=== PATIENT | female | born 1990 | race Caucasian/White ===

== ENCOUNTER 2017-12-18 10:06 | Inpatient (IN) | payer SELFPAY ==
[~2017-12-18] VITALS: Ht 160 cm; Wt 71.7 kg
[2017-12-18] VITALS (39 sets, daily range): BP systolic 100–143; BP diastolic 59–93
[~2017-12-18 10:06] MED LIST: DOCU100C37 PO; IBUP-1780 PO; OXYC-465 PO
[2017-12-18] MEDS ORDERED: OXYTOCIN/NORMAL SALINE 500 ML IV SCH ×2 (10:27→19:17)
[2017-12-18] MEDS ORDERED: D5 LR IV SOLUTION 1,000 ML IV ONE (10:34)
[2017-12-18] MEDS ORDERED: OXYTOCIN/NORMAL SALINE 500 ML IV ONE (10:34)
[2017-12-18] MEDS: D5 LR IV SOLUTION 1,000 ML IV SCH (11:00)
[2017-12-18 11:11] LABS: BASOPHILS % (AUTO) 0 % (0-10); EOSINOPHILS # (AUTO) 0.1 10^3/uL (0.0-0.3); EOSINOPHILS % (AUTO) 1 % (0-10); HEMATOCRIT 29 % (35-52); HEMOGLOBIN 9.5 G/DL (11.5-16.0); LYMPHOCYTES # (AUTO) 1.4 X 10^3 (1.0-4.0); LYMPHOCYTES % (AUTO) 15 % (12-44); MEAN CORPUSCULAR HEMOGLOBIN 26 PG (25-34); MEAN CORPUSCULAR HGB CONC 33 G/DL (32-36); MEAN CORPUSCULAR VOLUME 81 FL (80-99); MEAN PLATELET VOLUME 10.4 FL (7.4-10.4); MONOCYTES # (AUTO) 0.6 X 10^3 (0.0-1.0); MONOCYTES % (AUTO) 6 % (0-12); NEUTROPHILS # (AUTO) 7.2 X 10^3 (1.8-7.8); NEUTROPHILS % (AUTO) 79 % (42-75); PLATELET COUNT 184 10^3/uL (130-400); RED BLOOD COUNT 3.59 10^6/uL (4.35-5.85); RED CELL DISTRIBUTION WIDTH 13.2 % (10.0-14.5); WHITE BLOOD COUNT 9.2 10^3/uL (4.3-11.0)
[2017-12-18] MEDS ORDERED: SUFENTA 0.6MCG/ML BUPIVA 0.125 100 ML ONE (11:56)
[2017-12-18] MEDS ORDERED: BUPIVACAINE 0.25% 30 ML (SENSORCAINE) VIAL ONE (11:56)
[2017-12-18] MEDS ORDERED: fentaNYL INJECTION 100 MCG/2 ML AMP ONE (11:57)
--- NOTE | 2017-12-18 12:32 | History & Physical ---
History and Physical Date Seen by Provider: Dec 18, 2017 Time Seen by Provider: 12:30 This patient is a 27-year-old white female at 37 weeks and 1 day gestation she was found to have oligohydramnios with an ABBIE of less than 45. She was having some contractions. She denies irregular bleeding. She had a GBS culture negative. Her previous was delivered at around 37 weeks it well and was a complicated by polyhydramnios as well. Allergies are none Medications are vitamins past medical history, family history, and social histories are per the antepartum record HEENT exam is normal Neck is supple no lymphadenopathy no thyromegaly Abdomen is gravid soft nontender nondistended Extreme show clubbing cyanosis no Homans sign. Pelvic exam reveals a cervix 2 cm dilated 50 percent effaced -1 station somewhat posterior and soft and stretchy Assessment and plan term 37 weeks gestation with oligohydramnios admitted for labor management and delivery 37 weeks with oligohydramnios Allergies and Home Medications Allergies Coded Allergies: No Known Drug Allergies (Unverified , 10/06/15) Home Medications Docusate Sodium 100 Mg Capsule, 100 MG PO BID Prescribed by: AURELIA MAGAÑA on 10/07/15 0931 Ibuprofen 800 Mg Tablet, 800 MG PO Q6H Prescribed by: AURELIA MAGAAÑ on 10/07/15 0931 Oxycodone HCl/Acetaminophen 1 Each Tablet, 1-2 TAB PO Q4H PRN for PAIN Prescribed by: AURELIA MAGAÑA on 10/07/15 0931 Patient Home Medication List Home Medication List Reviewed: Yes Clinical Quality Measures DVT/VTE Risk/Contraindication: Risk Factor Score Per Nursin RFS Level Per Nursing on Admit: 1=Low/No VTE PPX AURELIA OLIVA MD Dec 18, 2017 12:32 pm
[2017-12-18] MEDS ORDERED: LACTATED RINGERS 1,000 ML IV ONE (13:39)
[2017-12-18] MEDS ORDERED: CATHETER FLUSH 10 ML SYR IV PRN (13:45)
[2017-12-18] MEDS ORDERED: diphenhydrAMINE 50 MG/ML INJ (BENADRYL) IV PRN (13:45)
[2017-12-18] MEDS ORDERED: NALOXONE 0.4 MG/ML 1 ML (NARCAN) VIAL IV PRN (13:45)
[2017-12-18] MEDS ORDERED: ONDANSETRON 4 MG/2 ML (SDV) Z0FRAN IV PRN (13:45)
[2017-12-18] MEDS ORDERED: EPIDURAL (SUFENTA 0.6MCG/ML BUPIVA 0.125%) 100 ML BAG EPI SCH (13:45)
[2017-12-18] MEDS ORDERED: LIDOCAINE/EPI 2% 1:200,00 (XYLOCAINE) 10 ML VIAL ONE (16:33)
[2017-12-18] MEDS ORDERED: TETANUS,DIPTH,PERTUSS P/F (BOOSTRIX) 0.5 ML VIAL IM ONE (19:30)
[2017-12-18] MEDS ORDERED: BENZOCAINE/MENTHOL (DERMOPLAST) 56 ML CAN TP PRN (19:30)
[2017-12-18] MEDS ORDERED: oxyCODONE/APAP 5/325MG (PERCOCET 5) TABLET PO PRN (19:30)
[2017-12-18] MEDS ORDERED: ONDANSETRON 4 MG/2 ML (SDV) Z0FRAN IVP PRN (19:30)
[2017-12-18] MEDS ORDERED: MEASLES,MUMPS,RUBELLA 1 EA INJ SC ONE (19:30)
[2017-12-18] MEDS: KETOROLAC 30 MG/ML VIAL IV SCH (20:30)
[2017-12-18] MEDS ORDERED: IBUP-1780 PO (20:43)
[2017-12-18] MEDS ORDERED: OXYC-465 PO (20:43)
[2017-12-18] MEDS ORDERED: DOCU100C37 PO (20:43)
--- NOTE | 2017-12-18 20:45 | Discharge Instructions ---
Discharge Instructions Discharge Medications New, Converted or Re-Newed RX: RX on Chart Patient Instructions Patient Instructions: As directed Return to The Hospital For: As directed Activity & Diet Discharge Diet: No Restrictions Activity as Tolerated: No Orders-Post D/C & Referrals Follow Up Appt: Call to make follow up appt. for patient in 4 weeks. Activity Per routine post vaginal delivery instructions. Diet as tolerated Patient may shower or tub bathe as desired. AURELIA OLIVA MD Dec 18, 2017 8:45 pm
[2017-12-18] MEDS ORDERED: OXYC-471 PO (20:46)
[2017-12-18] MEDS ORDERED: WITCH HAZEL(TUCKS) 40 EA JAR ONE (22:11)
[2017-12-18] MEDS ORDERED: WITCH HAZEL(TUCKS) 40 EA JAR TOP PRN (23:15)
--- NOTE | 2017-12-19 01:54 | OPERATIVE REPORT ---
DATE OF SERVICE: 12/18/2017 DELIVERY NOTE The patient delivered by term spontaneous vaginal delivery of viable female infant with Apgars of 8 and 9 at 1 and 5 minutes. Expected weight of 6 pounds 10 ounces. time of 17:45. Cord blood gas was 7.23. The patient delivered over a midline episiotomy that was performed at her request rather than allowing her perineum and posterior fourchette and vaginal wall and potentially her rectum to tear. The episiotomy was performed under local augmenting her epidural and then she pushed the baby out with two additional pushes. The infant was bulb suctioned on delivery of the head and then on completion of delivery. The umbilical cord was doubly clamped. The father cut the cord, the baby was passed to mom's abdomen. The placenta delivered spontaneously [place]. It was normal with a 3-vessel cord. The cervix, vagina, rectum and perineum were examined and found intact except for the midline episiotomy, which were repaired with a single suture of 3-0 Vicryl in the usual manner to good hemostasis and to good anatomic reapproximation and support. Sponge and needle counts were correct on completion of delivery and the repair. Estimated blood loss was around 200 mL. The patient tolerated the delivery and the repair well and remained in the LDR for recovery. The baby remained with the mom. Job ID: [id number] DocumentID: [id number] Dictated Date: 12/18/2017 18:12:53 Echocardiography Tech Date: 12/19/2017 01:53:33 Dictated By: AURELIA OLIVA MD
[2017-12-19] MEDS ORDERED: IBUPROFEN 800 MG (MOTRIN) TAB PO ONE ×3 (02:01→14:07)
[2017-12-19] MEDS: IBUPROFEN 800 MG (MOTRIN) TAB PO SCH ×3 (02:04→14:10)
[2017-12-19 02:10] VITALS: BP 114/77
--- NOTE | 2017-12-19 07:57 | Progress Note-Standard ---
Standard Progress Note Progress Notes/Assess & Plan Date Seen by Provider: Dec 19, 2017 Time Seen by Provider: 07:56 Progress/Assessment & Plan This patient is without complaint. She is ambulating, voiding, tolerating by mouth well, has good pain control. Patient is requesting discharge home. Vital Signs 12/18/17 12/19/17 17:25 02:10 Temp 99.0 Pulse 96 Resp 16 B/P (MAP) 114/77 (89) Pulse Ox 100 Vital signs are stable. Patient is afebrile. Fundus is firm below the umbilicus nontender. Extremely show no clubbing or cyanosis. There is no Homans sign. Assessment and plan day number 1 status post spontaneous vaginal delivery doing well. Plan is for discharge home with follow-up in clinic Final Diagnosis Term spontaneous vaginal delivery AURELIA OLIVA MD Dec 19, 2017 7:57 am
[2017-12-19 08:04] VITALS: BP 122/82
[2017-12-19] MEDS: DOCUSATE SODIUM 100 MG (COLACE) CAP PO SCH ×2 (08:11→13:52)
[2017-12-19 12:05] VITALS: BP 113/83
[2017-12-19] MEDS: OXYTOCIN/NORMAL SALINE 500 ML IV SCH ×2 (14:36→14:38)
[2017-12-19] MEDS: D5 LR IV SOLUTION 1,000 ML IV SCH ×4 (14:36→16:51)
[2017-12-19] MEDS: CATHETER FLUSH 10 ML SYR IV SCH ×2 (14:36→14:38)
--- NOTE | 2017-12-19 15:04 | Anesthesia-Regional Post-Op ---
Regional Patient Condition Mental Status: Alert, Oriented x3 Circulation: Same as Pre-Op Headache: Absent Sensation: Full Recovery Motor Block: Absent Post Op Complications Complications None Follow Up Care/Instructions Patient Instructions None needed. Anesthesia/Patient Condition Patient is doing well, no complaints, stable vital signs, no apparent adverse anesthesia problems. XIANG PATE DO Dec 19, 2017 15:04
[2017-12-19] MEDS ORDERED: TETANUS,DIPTH,PERTUSS P/F (BOOSTRIX) 0.5 ML VIAL IM ONE (15:37)
[2017-12-19 15:40] VITALS: BP 131/80
[2017-12-19] MEDS: KETOROLAC 30 MG/ML VIAL IV SCH (16:52)
== END 2017-12-19 20:30 | disposition home or self-care (01) | DRG 775 ==
LOC: LDRP 10:06
PROVIDERS: ADMIT Obstetrics & Gynecology; ATTEND Obstetrics & Gynecology
PROC: 10E0XZZ Delivery of Products of Conception, External Approach (ICD-10-PCS; principal; 2017-12-18)
PROC: 0W8NXZZ Division of Female Perineum, External Approach (ICD-10-PCS; 2017-12-18)
DX: O41.03X0 Oligohydramnios, third trimester, not applicable or unspecified (principal); Z3A.37 37 weeks gestation of pregnancy; Z37.0 Single live birth; Z23 Encounter for immunization
CPT/HCPCS: 36415; 85025; 86850; 86900; 86901; 90715

== ENCOUNTER 2020-04-21 07:00 | Inpatient (IN) | payer SELFPAY ==
[~2020-04-21] VITALS: Ht 160 cm; Wt 72.1 kg
[2020-04-21] VITALS (60 sets, daily range): BP systolic 92–134; BP diastolic 52–86
[~2020-04-21 07:00] MED LIST changes: -OXYC-465 PO; +OXYC-471 PO; +OXYC-556 PO
--- NOTE | 2020-04-21 07:22 | NUR ---
SOLOMON WALTON Kit presented to unit via ambulatory from home, accompanied by her s/o, with for INDUCTION. SOLOMON WALTON weighed, gowned, voided, and to bed. EFHM and TOCO applied, VS taken. SOLOMON WALTON oriented to bed controls, call light, TV, heat, and A/C controls.
[2020-04-21] MEDS ORDERED: D5 LR IV SOLUTION 1,000 ML IV ONE (07:55)
[2020-04-21] MEDS ORDERED: DOCU100C37 PO (07:58)
[2020-04-21] MEDS ORDERED: OXYC-471 PO (07:58)
[2020-04-21] MEDS ORDERED: IBUP-1780 PO (07:58)
--- NOTE | 2020-04-21 07:58 | Discharge Inst-Surgical ---
Discharge Inst-Surgical Depart Medication/Instructions New, Converted or Re-Newed RX: RX on Chart Consults/Follow Up Patient Instructions: as directed Orders & Referrals Follow Up Appt: Call to make follow up appt. for patient in 4 weeks. Activity Per routine post vaginal delivery instructions. Please call in RX to patient pharmacy. Diet as tolerated Patient may shower or tub bathe as desired. Activity Activity as Tolerated: No Diet Discharge Diet: No Restrictions AURELIA OLIVA MD Apr 21, 2020 07:58
[2020-04-21] MEDS: D5 LR IV SOLUTION 1,000 ML IV SCH ×2 (08:00→12:48)
--- NOTE | 2020-04-21 08:01 | History & Physical ---
History and Physical Date Seen by Provider: Apr 21, 2020 Time Seen by Provider: 07:59 this patient is a 30-year-old 3 para 2 white female admitted now for induction of labor at 38+ weeks gestation. Blood pressures in clinic have been progressively climbing the point now where he was running over 140/95 when last seen in clinic. Patient is admitted for induction of labor due to PIH. Patient denies rupture membranes or bleeding. She had a GBS culture after 35 weeks gestation that was negative. Patient is feeling some contractions and pressure. Allergies are none Medications are vitamins Medical social and surgical histories are per the antepartum record HEENT exam is normal Neck is supple no lymphadenopathy or thyromegaly Abdomen is gravid soft nontender nondistended Extremities show no clubbing or cyanosis. Is no Homans sign. Pelvic exam is pending - most recent pelvic exam in clinic showed a cervix almost 3 cm dilated 50 percent effaced 0-1 station mid to anterior soft with a vertex presentation Downey score is 8 Lab work is pending Assessment and plan term at 38+ weeks gestation in a patient with PIH. She is admitted now for induction of labor. We do anticipate vaginal delivery but would be prepared for if needed 38 weeks with -induced hypertension admitted for induction of labor Allergies and Home Medications Allergies Coded Allergies: No Known Drug Allergies (Unverified , 10/06/15) Home Medications Docusate Sodium 100 Mg Capsule, 100 MG PO BID Prescribed by: AURELIA MAGAÑA on 10/07/15930 Docusate Sodium 100 Mg Capsule, 100 MG PO BID Prescribed by: AURLEIA MAGAÑA on 04/21/20757 Ibuprofen 800 Mg Tablet, 800 MG PO Q6H Prescribed by: AURELIA MAGAÑA on 10/07/15930 Ibuprofen 800 Mg Tablet, 800 MG PO Q6H Prescribed by: AURELIA MAGAÑA on 04/21/20757 Oxycodone HCl/Acetaminophen 1 Each Tablet, 1-2 TAB PO Q4H PRN for PAIN Prescribed by: AURELIA MAGAÑA on 12/18/172042 Oxycodone HCl/Acetaminophen 1 Each Tablet, 1 TAB PO Q4H PRN for PAIN-MODERATE Prescribed by: AURELIA MAGAÑA on 04/21/20 075 Patient Home Medication List Home Medication List Reviewed: Yes AURELIA OLIVA MD Apr 21, 2020 08:01
[2020-04-21 08:25] LABS: BASOPHILS % (AUTO) 0 % (0-10); EOSINOPHILS # (AUTO) 0.1 10^3/uL (0.0-0.3); EOSINOPHILS % (AUTO) 1 % (0-10); HEMATOCRIT 32 % (35-52); LYMPHOCYTES # (AUTO) 0.9 10^3/uL (1.0-4.0); LYMPHOCYTES % (AUTO) 11 % (12-44); MEAN CORPUSCULAR HEMOGLOBIN 31 pg (25-34); MEAN CORPUSCULAR HGB CONC 34 g/dL (32-36); MEAN CORPUSCULAR VOLUME 89 fL (80-99); MEAN PLATELET VOLUME 10.6 fL (9.0-12.2); MONOCYTES # (AUTO) 0.5 10^3/uL (0.0-1.0); MONOCYTES % (AUTO) 6 % (0-12); NEUTROPHILS # (AUTO) 6.6 10^3/uL (1.8-7.8); NEUTROPHILS % (AUTO) 81 % (42-75); PLATELET COUNT 119 10^3/uL (130-400); WHITE BLOOD COUNT 8.2 10^3/uL (4.3-11.0)
[2020-04-21] MEDS ORDERED: FLU QUADRIvalent (3YOA+) 60 mcg/0.5 ml 2020-21 (AFLURIA) IM ONE (09:15)
--- NOTE | 2020-04-21 09:19 | NUR ---
0919 ANESTHESIA NOTIFIED OF PTS REQUEST FOR EPIDURAL. 1000 ANESTHESIA ON UNIT FOR PLACEMENT OF EPIDURAL.
[2020-04-21] MEDS ORDERED: fentaNYL 2 mcg/ml BUPIVA 0.125 100 ML ONE (09:29)
--- NOTE | 2020-04-21 09:31 | NUR ---
UPDATED ON RECENT SVE. NO NEW ORDERS RECEIVED.
[2020-04-21] MEDS ORDERED: LACTATED RINGERS 1,000 ML IV ONE ×2 (09:47)
[2020-04-21] MEDS ORDERED: NALOXONE 0.4 MG/ML 1 ML (NARCAN) VIAL IV PRN (10:00)
[2020-04-21] MEDS ORDERED: ONDANSETRON 4 MG/2 ML (SDV) Z0FRAN IV PRN (10:00)
[2020-04-21] MEDS ORDERED: fentaNYL INJECTION 100 MCG/2 ML AMP INJ ONE (10:00)
[2020-04-21] MEDS ORDERED: fentaNYL INJECTION 100 MCG/2 ML AMP ONE (10:04)
[2020-04-21] MEDS: EPIDURAL (fentaNYL 2 MCG/ML BUPIVA 0.125%)100 ML BAG EPI PRN (10:33)
--- NOTE | 2020-04-21 10:50 | NUR ---
UPDATED ON SVE AND EPIDURAL STATUS. NO NEW ORDERS RECEIVED.
--- NOTE | 2020-04-21 11:07 | NUR ---
CRISTAL [place] START WITH NEW ORDERS RECEIVED.
[2020-04-21] MEDS ORDERED: OXYTOCIN PRE-MIX DRIP 500 ML IV SCH ×2 (11:09→17:10)
[2020-04-21] MEDS ORDERED: OXYTOCIN PRE-MIX DRIP 500 ML IV ONE (11:16)
[2020-04-21] MEDS ORDERED: BUPIVACAINE 0.25% 30 ML (SENSORCAINE) VIAL ONE (13:13)
[2020-04-21] MEDS ORDERED: LIDOCAINE/EPI 2% 1:200,00 (XYLOCAINE) 10 ML VIAL ONE ×2 (15:45)
[2020-04-21] MEDS ORDERED: MEASLES,MUMPS,RUBELLA 1 EA INJ SC ONE (17:15)
[2020-04-21] MEDS ORDERED: oxyCODONE/APAP 5/325MG (PERCOCET 5) TABLET PO PRN (17:15)
[2020-04-21] MEDS ORDERED: TETANUS,DIPTH,PERTUSS P/F (BOOSTRIX) 0.5 ML VIAL IM ONE (17:15)
[2020-04-21] MEDS ORDERED: ONDANSETRON 4 MG/2 ML (SDV) Z0FRAN IVP PRN (17:15)
[2020-04-21] MEDS ORDERED: BENZOCAINE/MENTHOL (DERMOPLAST) 60 ML CAN TP PRN (17:15)
[2020-04-21] MEDS: KETOROLAC 30 MG/ML VIAL IVP SCH ×2 (18:25→23:49)
--- NOTE | 2020-04-21 18:40 | NUR ---
EPIDURAL CATHETER REMOVED. TIP INTACT.
--- NOTE | 2020-04-21 18:40 | NUR ---
PT UP TO BATHROOM UNABLE TO VOID. +PERICARE AND LINENS CHANGED. PT TRANSFERRED FROM -319 TO -310 VIA AMBULATORY IN STABLE CONDITION ACCOMPANIED BY THIS RN, FOB, AND . ICE PACK APPLIED AND CALL LIGHT WITHIN REACH. NO FURTHER NEEDS AT THIS TIME.
[2020-04-21] MEDS: DOCUSATE SODIUM 100 MG (COLACE) CAP PO SCH (20:32)
--- NOTE | 2020-04-21 20:37 | OPERATIVE REPORT ---
DATE OF SERVICE: 04/21/2020 DELIVERY NOTE The patient delivered by term spontaneous vaginal delivery a viable female infant with Apgars of 7 and 8 at 1 and 5 minutes respectively, weight of 7 pounds 10 ounces. time of 1603 and a cord blood pH of 7.21. The was delivered over a first-degree perineal laceration under epidural analgesia. The was bulb suctioned on delivery of the head again on completion of delivery. Umbilical cord when pulseless was doubly clamped, father cut the cord, the baby was passed to mom's abdomen. Cord bloods were obtained. The placenta delivered spontaneously [place]. It was normal with a 3-vessel cord. The cervix, vagina, rectum, and perineum were examined and found intact, except for a first-degree perineal laceration that was repaired with a single suture of 3-0 Vicryl [place] in the usual manner without difficulty to good hemostasis. The repair was accomplished augmenting the epidural with local analgesia in the perineal body. On completion of the repair, sponge and needle counts were correct. Blood loss was around 200 mL. The patient tolerated the delivery well and remained in the LDR for recovery. The baby remained in the LDR as well. Job ID: [id number] DocumentID: [id number] Dictated Date: 04/21/2020 17:59:00 Salesperson [employer] Date: 04/21/2020 20:35:45 Dictated By: AURELIA OLIVA MD
--- NOTE | 2020-04-21 23:40 | NUR ---
Wipes and gown given. chux changed. water refilled. Baby taken to nsy. iv converted to saline lock. pt denies further needs at this time.
[2020-04-22] MEDS: EPIDURAL (fentaNYL 2 MCG/ML BUPIVA 0.125%)100 ML BAG EPI PRN ×2 (00:51→00:54)
[2020-04-22] MEDS: D5 LR IV SOLUTION 1,000 ML IV SCH (00:53)
[2020-04-22] MEDS: KETOROLAC 30 MG/ML VIAL IVP SCH (05:58)
[2020-04-22 06:00] VITALS: BP 108/57
[2020-04-22] MEDS: DOCUSATE SODIUM 100 MG (COLACE) CAP PO SCH (08:38)
[2020-04-22 08:39] VITALS: BP 106/58
--- NOTE | 2020-04-22 10:40 | Progress Note ---
Standard Progress Note Progress Notes/Assess & Plan Date Seen by a Provider: Apr 22, 2020 Time Seen by a Provider: 10:39 Progress/Assessment & Plan PATIENT IS WITHOUT COMPLAINT. sHE IS AMBULATING, VOIDING, TOLERATING ORAL INTAKE WELL HAS GOOD PAIN CONTROL. Vital Signs 04/22/20 08:39 Temp 36.3 Pulse 97 Resp 18 B/P (MAP) 106/58 (74) Pulse Ox 94 O2 Delivery Room Air Vital signs are stable. Patient is afebrile. Fundus is firm below the umbilicus and nontender. Extremities show no clubbing or cyanosis. There is no Homans sign. Assessment and plan day 1 status post term spontaneous vaginal delivery at 38+ weeks gestation. Blood pressures are normalizing. Plan is for routine convalescence care with discharge home today or tomorrow as patient pref ers Final Diagnosis 38 week spontaneous vaginal delivery AURELIA OLIVA MD Apr 22, 2020 10:40
[2020-04-22 13:30] VITALS: BP 107/75
--- NOTE | 2020-04-22 15:00 | Anesthesia-Regional Post-Op ---
Regional Patient Condition Mental Status: Alert, Oriented x3 Circulation: Same as Pre-Op Headache: Absent Sensation: Full Recovery Motor Block: Absent Post Op Complications Complications None Follow Up Care/Instructions Patient Instructions None needed. Anesthesia/Patient Condition Patient is doing well, no complaints, stable vital signs, no apparent adverse anesthesia problems. No complications reported per nursing. GONZALO LOGAN CRNA Apr 22, 2020 14:59
[2020-04-22] MEDS ORDERED: IBUPROFEN 800 MG (MOTRIN) TAB PO SCH (17:30)
== END 2020-04-22 18:55 | disposition home or self-care (01) | DRG 807 ==
LOC: LDRP 07:16
PROVIDERS: ADMIT Obstetrics & Gynecology; ATTEND Obstetrics & Gynecology
PROC: 0HQ9XZZ Repair Perineum Skin, External Approach (ICD-10-PCS; principal; 2020-04-21)
PROC: 10E0XZZ Delivery of Products of Conception, External Approach (ICD-10-PCS; 2020-04-21)
DX: O13.4 Gestational [pregnancy-induced] hypertension without significant proteinuria, complicating childbirth (principal); Z37.0 Single live birth; Z3A.38 38 weeks gestation of pregnancy; O70.0 First degree perineal laceration during delivery
CPT/HCPCS: 36415; 85025; 86850; 86900; 86901

== ENCOUNTER → 2023-04-22 | Outpatient (CLI) | payer SELFPAY ==
[~2023-04-22] MED LIST changes: -OXYC-471 PO; +OXYC1TAB11 PO
--- NOTE | 2023-04-22 14:47 | Diagnostic Imaging Report ---
INDICATION: Anatomic survey TECHNIQUE: Multiple real-time grayscale images were obtained over the gravid uterus. COMPARISON: None FINDINGS: Number: 1 Presentation: Cephalic Placenta: Posteriorly located without evidence of placenta previa. Amniotic Fluid: ABBIE is 12.3 cm. Single largest vertical pocket is 3.6 cm. Heart Rate: 149 bpm biometrics are symmetric. They are consistent with an estimated gestational age of 20 weeks and 1 day. Therefore, there is an expected due date based on this examination of 09/08/2023. Findings consistent with clinical dating. EFW: 317 g, 37th percentile FINDINGS: The anatomic survey is grossly unremarkable. The stomach, four-chamber heart, kidneys, bladder, three-vessel cord and the cord insertion are well seen. The spine and intracranial structures are grossly unremarkable. IMPRESSION: Single live intrauterine at approximately 20 weeks and 1 day, with an BEN of 09/08/2023. These are consistent with clinical dates. No gross abnormalities are seen at this time. Biometrical measurements are as follows: Biparietal 4.7 cm, age 20 weeks 1 days. Head circumference 17.6 cm, age 20 weeks 1 days. Abdominal circumference 14.3 cm, age 19 weeks 5 days. Femur length 3.2 cm, age 20 weeks 1 days. Sonographic estimate age: 20 weeks 1 days. Sonographic estimated date of delivery: 09/08/23. Estimated Weight: 317 gm (+/- 46 gm). LMP percentile: 37%. heart rate: 149 beats per minute. number: 1 of 1. Dictated by: Dictated on workstation # [id number]
== END ==
LOC: RAD 13:00
PROVIDERS: ATTEND Obstetrics & Gynecology
DX: Z36.89 Encounter for other specified antenatal screening (principal); Z3A.20 20 weeks gestation of pregnancy
CPT/HCPCS: 76805